=== PATIENT | male | born 1985 | race Caucasian/White ===

== ENCOUNTER 2022-02-24 13:22 | Outpatient (REF) | payer OTHER, SELFPAY ==
[2022-02-24 13:48] LABS: MANUAL DIFF FLAG NO
[2022-02-24 13:54] LABS: Basophils Percent Auto 0.2 % (0-2); Eosinophils Absolute Auto 0.1 X10*3/uL (0.0-0.4); Eosinophils Percent Auto 1.4 % (0-4); Hematocrit 44.2 % (42.0-52.0); Hemoglobin 15.2 g/dl (14.0-18.0); Imm Gran Abs Auto 0.02 X10*3/uL (0.00-0.03); Imm Gran Pct Auto 0.4 % (0.0-0.4); Lymphocytes Absolute Auto 1.3 X10*3/uL (1.2-4.9); Lymphocytes Percent Auto 23.2 % (20-40); Mean Corpuscular HGB Conc 34.4 g/dl (31.0-36.0); Mean Corpuscular Hemoglobin 29.7 pg (27.0-33.0); Mean Corpuscular Volume 86.3 fL (80.0-98.0); Mean Platelet Volume 9.8 fL (9.4-12.4); Monocytes Absolute Auto 0.4 X10*3/uL (0.1-1.2); Monocytes Percent Auto 7.9 % (2-11); Neutrophils Absolute Auto 3.8 x10*3/uL (2.0-8.3); Neutrophils Percent Auto 66.9 % (45-73); Platelet Count 166 X10*3/uL (160-400); Red Blood Count 5.12 X10*6/uL (4.60-5.80); Red Cell Distribution Width 12.6 % (11.0-16.0); White Blood Count 5.6 X10*3/uL (4.8-10.8)
[2022-02-24 14:08] LABS: Estimated Average Glucose 171 mg/dL; Hemoglobin A1c % 7.6 %
[2022-02-24 14:21] LABS: Alanine Aminotransferase 23 U/L (0-40); Albumin Level 4.5 g/dL (3.5-5.0); Alkaline Phosphatase 82 U/L (39-117); Anion Gap 11 (12-20); Aspartate Amino Transferase 13 U/L (5-37); Bilirubin Total 0.7 mg/dL (0.0-1.0); Blood Urea Nitrogen 16 mg/dL (9-16); Calcium 9.7 mg/dL (8.4-10.2); Carbon Dioxide 30 mmol/L (22-29); Chloride 101 mmol/L (96-108); Cholesterol 162 mg/dL; Estimated Glomerular Filt Rate > 60; Glucose Random 207 mg/dL (60-115); HDL Cholesterol 32 mg/dL; LDL Cholesterol Calculated 89 mg/dl; Potassium 4.5 mmol/L (3.3-5.1); Sodium 137 mmol/L (135-145); Triglycerides 206 mg/dL
[2022-02-24 14:41] LABS: TSH reflex Free T4 0.86 uIU/mL (0.32-4.0); Vitamin D 25-OH Total 22.8 ng/mL (>30)
[2022-02-24 16:04] LABS: Creatinine Urine 195.86 mg/dL; Microalbum/Creatinine Ratio Ur 11.7 ug/mg cr
[2022-02-24 16:23] LABS: Vitamin B12 407 pg/mL (200-900)
== END 2022-02-24 13:23 | disposition home or self-care (01) ==
LOC: HO.LAB 13:22
PROVIDERS: PCP Nurse Practitioner Family; Visit Provider Nurse Practitioner Family
DX: I10 Essential (primary) hypertension (principal); E11.9 Type 2 diabetes mellitus without complications; Z13.29 Encounter for screening for other suspected endocrine disorder; Z13.220 Encounter for screening for lipoid disorders
CPT/HCPCS: 36415; 80053; 80061; 82043; 82306; 82607; 82746; 83036; 84443; 85025

== ENCOUNTER 2024-04-05 15:14 | Outpatient (AMB) | payer OTHER, SELFPAY ==
--- NOTE | 2024-04-05 15:18 | MHC.PC.OV ---
Vital Signs 04/05/24 15:20 04/05/24 15:28 Height 5 ft 8 in Weight 187 lb 6 oz BMI 28.5 BP 150/98 H 160/90 H Blood Pressure Location Lt brachial Lt brachial Position Sitting Sitting Pulse 97 Pulse Source Pulse Oximeter Pulse Oximetry (%) 97 Oxygen Delivery Method Room Air Intake Visit Reasons: med refills/establish care Sandee patient Intake Note: Patient is here to follow up on med refill, DM. Family Intervention Specialist Required: No Home Improvement Advisor: Not Required per policy Accompanied by: Self / Same As Patient Allergies No Known Allergies Allergy (Verified 04/06/24 15:46) Medication List - Last Reconciled 04/06/24 by Juaquin Velez MD blood sugar diagnostic (FreeStyle Lite Strips) test daily blood-glucose meter (FreeStyle Lite Meter kit) test daily cholecalciferol (vitamin D3) 25 mcg PO DAILY empagliflozin (Jardiance) 25 mg PO DAILY enalapril maleate 10 mg PO DAILY lancets (FreeStyle Lancets) test daily metformin 500 mg PO BID Tobacco use date assessed: 04/05/24 Dental Screening Dental Screen Date: 04/05/24 Did you have a dental visit in the last 12 months?: No Did you have a dental problem in the last 6 months where you did not have access to dental care?: No Was dental information given to patient?: No HPI med refills/establish care Sandee patient HPI Details 39-year-old male presents to the office to discuss his medical condition. I will be assuming his care as his provider has left the practice. Patient has history of diabetes and hypertension. He has been out of medications for the past few months. Blood sugars have been elevated. Patient is a smoker and drinks alcohol every day. Able to function and do all activities of daily living. Not exercising or following any particular diet. [facility] Medical History (Updated 04/06/24 @ 15:50 by Juaquin Velez MD) Tobacco use disorder Hypertension Diabetes mellitus type 2 in nonobese Surgical History No pertinent past surgical history Family History Father Diabetes mellitus Hypertension Mother Stomach cancer Social History Housing: House Alcohol intake: current Alcohol intake frequency: a few times a month Patient Tobacco Use Status: Current everyday Tobacco user Tobacco use type: Cigarette Cigarettes Per Day: 4 e-Cigarette/Vaping Use: Never Used Second Hand Smoke Exposure: Yes service: No Current occupational status: other Cognitive needs: No Hearing needs: No Vision needs: Yes (Glasses) Questionnaire PHQ-9 Over the last 2 weeks, how often have you been bothered by any of the following problems? 1. Little interest or pleasure in doing things: not at all 2. Feeling down, depressed, or hopeless: not at all 3. Trouble falling or staying asleep, or sleeping too much: not at all 4. Feeling tired or having little energy: not at all 5. Poor appetite or overeating: not at all 6. Feeling bad about yourself - or that you are a failure or have let yourself or your family down: not at all 7. Trouble concentrating on things, such as reading the newspaper or watching television: not at all 8. Moving or speaking so slowly that other people could have noticed. Or the opposite - being so fidgety or restless that you have been moving around a lot more than usual: not at all 9. Thoughts that you would be better off or of hurting yourself in some way: not at all Total score: 0 Depression Screening Interpretation: Negative Depression Screening Done: Yes Source: Developed by Drs. Buster Marshall, Radha Carson, Herb Smith and colleagues, with an educational marquis from [employer]. Thrive Questionnaire Date Thrive assessed: 04/05/24 I am a: Patient What is your living situation today?: I have a steady place to live Within the past 12 months, did the food you bought not last and you didn't have the money to get more?: Never true Within the past 12 months, did you worry whether your food would run out before you got money to buy more?: Never true Do you have trouble paying for medicines?: No Do you have trouble getting transportation to medical appointments?: No Do you have trouble paying your heating and electricity bill?: No Do you have trouble taking care of your child, family member or friend?: No Do you have trouble with day-to-day activities such as bathing, preparing meals, shopping, managing finances, etc.?: No Are you currently unemployed and looking for a job?: No Are you interested in more education?: No Currently or been in a relationship where the following occur: no concerns reported THRIVE Score: 0 AUDIT C Alcohol Use Questionnaire (AUDIT-C) 1. How often do you have a drink containing alcohol?: Monthly or less Total Score: 1 SHAUNNA-7 AMB Questionnaire SHAUNNA-7 Date SHAUNNA - 7 assessed: 04/05/24 Feeling nervous, anxious, or on edge: 0 = Not at all Not being able to stop or control worryin = Not at all Worrying too much about different things: 0 = Not at all Trouble relaxin = Not at all Being so restless that it is hard to sit still: 0 = Not at all Becoming easily annoyed or irritable: 0 = Not at all Feeling afraid as if something awful might happen: 0 = Not at all Total SHAUNNA-7 score (0-4 normal; 5-9 mild; 10-14 moderate; 15-21 severe): 0 Source: Developed by Drs. Buster Marshall, Radha Carson, Herb Smith and colleagues, with an educational marquis from [employer]. Physical exam (Primary Care) Vital Signs: Last Vital Signs Pulse 97 04/05/24 15:20 BP 160/90 H 04/05/24 15:28 Pulse Ox 97 04/05/24 15:20 Oxygen Delivery Method Room Air 04/05/24 15:20 Care Plan Goal for BP management: Blood pressure is elevated. Medications have been restarted. BMI result Body Mass Index 28.5 Tobacco/Smoking Status: Tobacco use Status Tobacco use date assessed 04/05/24 04/05/24 15:31 Patient Tobacco Use Status Current everyday Tobacco 04/05/24 15:31 Tobacco use type Cigarette 04/05/24 15:27 e-Cigarette/Vaping Use Never Used 04/05/24 15:27 Are you ready to quit: Yes PHQ-9: PHQ-9 Score PHQ-9: Total score 0 04/05/24 15:41 Depression Screening Interpretation: Negative Thrive Assessment: Date of Thrive Assessment Date Thrive assessed 04/05/24 04/05/24 15:31 Currently or been in a relationship where the following occur: no concerns reported Const General: cooperative and healthy appearing Nutritional Appearance: well nourished Orientation/consciousness: patient oriented x3 Limitations: no limitations HENMT Head: Yes normal to inspection Eyes General: appearance normal, both eyes and all related structures Neck Neck: Yes normal visual inspection Chest Chest palpation & inspection: normal palpation of entire chest wall Resp Effort & Inspection: normal respiratory effort Neuro General: patient oriented x3 Results AMB Hemoglobin A1c AMB Hemoglobin A1c 7.3 % Last Edit by ALEJANDRO Brewer on 04/05/24 15:36 Results Reviewed Results Reviewed: Laboratory Last Values Hgb A1c (Clinic) 7.3 % (4.0-6.0) H 04/05/24 15:18 Assessment and Plan Assessment & Plan (1) Hypertension: Code(s): I10 - Essential (primary) hypertension Plan: Elevated blood pressure. MERCEDES inhibitors have been restarted. (2) Diabetes mellitus type 2 in nonobese: Code(s): E11.9 - Type 2 diabetes mellitus without complications Plan: A1c is elevated. Metformin and Jardiance has been added to the regimen. Patient has been encouraged compliance. I advised the patient to follow-up here before he leaves [place]. (3) Tobacco use disorder: Code(s): F17.200 - Nicotine dependence, unspecified, uncomplicated Plan: Patient was counseled to quit smoking. Orders: Orders AMB Hemoglobin A1c 04/05/24 E11.9 - Type 2 diabetes mellitus without complications Complete Blood Count no Diff Today E11.9 - Type 2 diabetes mellitus without complications, I10 - Essential (primary) hypertension Lipid Panel Today E11.9 - Type 2 diabetes mellitus without complications, I10 - Essential (primary) hypertension Liver Panel Today E11.9 - Type 2 diabetes mellitus without complications, I10 - Essential (primary) hypertension Thyroid Stimulating Hormone Today E11.9 - Type 2 diabetes mellitus without complications, I10 - Essential (primary) hypertension UA and rflx microscopic Today E11.9 - Type 2 diabetes mellitus without complications, I10 - Essential (primary) hypertension Basic Metabolic Panel Today E11.9 - Type 2 diabetes mellitus without complications, I10 - Essential (primary) hypertension Medications: New empagliflozin (Jardiance) 25 mg PO DAILY 90 tabs 1RF enalapril maleate 10 mg PO DAILY 90 tabs 1RF Refilled metformin 500 mg PO BID 180 tabs 1RF E11.9 - Type 2 diabetes mellitus without complications Coding Level of Care Code Est Pt Level 4 (63361) Complex EM visit Add On G2211 Diagnoses Hypertension I10 Diabetes mellitus type 2 in nonobese E11.9 Tobacco use disorder F17.200
[2024-04-05 15:20] VITALS: BP 150/98; PULSE 97; O2SAT 97; BMI 28.5
[2024-04-05 15:28] VITALS: BP 160/90
== END 2024-04-05 15:55 | disposition home or self-care (01) ==
PROVIDERS: PCP Nurse Practitioner Family; Visit Provider Internal Medicine
DX: E11.9 Type 2 diabetes mellitus without complications (principal)
CPT/HCPCS: 83036; 99214; G2211

== ENCOUNTER 2024-04-06 12:26 | Outpatient (REF) | payer OTHER, SELFPAY ==
[2024-04-06 13:40] LABS: Hematocrit 43.6 % (42.0-52.0); Hemoglobin 15.4 g/dl (14.0-18.0); Mean Corpuscular HGB Conc 35.3 g/dl (31.0-36.0); Mean Corpuscular Hemoglobin 30.9 pg (27.0-33.0); Mean Corpuscular Volume 87.6 fL (80.0-98.0); Platelet Count 158 X10*3/uL (160-400); Red Blood Count 4.98 X10*6/uL (4.60-5.80); Red Cell Distribution Width 13.2 % (11.0-16.0); White Blood Count 6.2 X10*3/uL (4.8-10.8)
[2024-04-06 14:19] LABS: Appearance Urine Clear; Color Urine Yellow; Glucose Urine UA >=1000 mg/dL (Negative); Leukocyte Esterase Urine Negative (Negative); Nitrite Urine Negative (Negative); PH 5.5 (5.0-9.0); Specific Gravity - Urine >= 1.030 (1.005-1.025); UMIC TRIGGER UA YES; Urine Blood Trace (Negative); Urine Ketones Negative (Negative); Urine Protein Negative (Neg-Trace)
[2024-04-06 14:21] LABS: Bacteria Urine None Seen (None Seen); Hyaline Casts Urine 0-2 /LPF (0-2); RBC Urine 0-2 /HPF (0-2); Squamous Epithelial Cell Urine 0-2 /HPF (0-2); WBC Urine 0-5 /HPF (0-5)
[2024-04-06 14:30] LABS: Alanine Aminotransferase 26 U/L (0-40); Albumin Level 4.4 g/dL (3.5-5.0); Alkaline Phosphatase 85 U/L (39-117); Anion Gap 12 (12-20); Aspartate Amino Transferase 19 U/L (5-37); Bilirubin Direct 0.2 mg/dL (0.0-0.5); Bilirubin Total 0.8 mg/dL (0.0-1.0); Blood Urea Nitrogen 14 mg/dL (9-16); Calcium 9.9 mg/dL (8.4-10.2); Carbon Dioxide 29 mmol/L (22-29); Chloride 102 mmol/L (96-108); Cholesterol 149 mg/dL (<200); Estimated Glomerular Filt Rate > 60; Glucose Random 162 mg/dL (60-115); HDL Cholesterol 40 mg/dL (>40); LDL Cholesterol Calculated 59 mg/dL (<100); Potassium 3.5 mmol/L (3.3-5.1); Sodium 139 mmol/L (135-145); Total Protein 7.3 g/dL (6.5-8.0); Triglycerides 253 mg/dL (<150)
== END 2024-04-06 12:27 | disposition home or self-care (01) ==
LOC: HO.LAB 12:26
PROVIDERS: PCP Internal Medicine; Visit Provider Internal Medicine
DX: I10 Essential (primary) hypertension (principal); E11.9 Type 2 diabetes mellitus without complications
CPT/HCPCS: 36415; 80048; 80061; 80076; 81001; 84443; 85027

== ENCOUNTER 2024-08-23 14:48 | Outpatient (AMB) | payer OTHER, SELFPAY ==
--- NOTE | 2024-08-23 14:59 | A.OFFPC_ITS ---
Vital Signs 08/23/24 15:00 Height 5 ft 8 in Weight 178 lb 4 oz BMI 27.1 BP 140/90 H Blood Pressure Location Lt brachial Position Sitting Pulse 77 Pulse Source Pulse Oximeter Pulse Oximetry (%) 96 Oxygen Delivery Method Room Air Intake Visit Reasons: Follow Up Intake Note: Patient is here to follow up on DM, HTN, HLD. Pt decline flu shot today. 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 Accompanied by: Self / Same As Patient Allergies No Known Allergies Allergy (Verified 08/24/24 04:47) Medication List - Last Reconciled 08/24/24 by Juaquin Velez MD blood sugar diagnostic (FreeStyle Lite Strips) test daily blood-glucose meter (FreeStyle Lite Meter kit) test daily cholecalciferol (vitamin D3) 25 mcg PO DAILY empagliflozin (Jardiance) 25 mg PO DAILY enalapril maleate 10 mg PO DAILY lancets (FreeStyle Lancets) test daily metformin 500 mg PO BID rosuvastatin 10 mg PO DAILY Tobacco use date assessed: 08/23/24 Dental Screening Dental Screen Date: 04/05/24 HPI Follow Up HPI Details 39-year-old male presents to the office to discuss his chronic medical conditions. Patient is compliant with medications and reporting no side effects. Has been following a restricted diet and has lost some weight. Able to function and do all activities of daily living. Patient is not checking his blood sugars regularly. Does not check his blood pressures at home. [facility] Medical History Hypercholesterolemia Tobacco use disorder Hypertension Diabetes mellitus type 2 in nonobese Surgical History No pertinent past surgical history Family History Father Diabetes mellitus Hypertension Mother Stomach cancer Social History Housing: House Alcohol intake: current Alcohol intake frequency: a few times a month Patient Tobacco Use Status: Current everyday Tobacco user Tobacco use type: Cigarette Cigarette Packs Per Day: 0.5 Cigarettes Per Day: 5 e-Cigarette/Vaping Use: Never Used Second Hand Smoke Exposure: Yes service: No Current occupational status: other Cognitive needs: No Hearing needs: No Vision needs: Yes (Glasses) Questionnaire Thrive Questionnaire Date Thrive assessed: 04/05/24 SHAUNNA-7 AMB Questionnaire SHAUNNA-7 Date SHAUNNA - 7 assessed: 04/05/24 Source: Developed by Drs. Buster Marshall, Radha Carson, Herb Smith and colleagues, with an educational marquis from [email or web address]. Physical exam (Primary Care) Vital Signs: Last Vital Signs Pulse 77 08/23/24 15:00 BP 140/90 H 08/23/24 15:00 Pulse Ox 96 08/23/24 15:00 Oxygen Delivery Method Room Air 08/23/24 15:00 BMI result Body Mass Index 27.1 Tobacco/Smoking Status: Tobacco use Status Tobacco use date assessed 08/23/24 08/23/24 15:08 Patient Tobacco Use Status Current everyday Tobacco 08/23/24 15:08 Tobacco use type Cigarette 08/23/24 15:08 e-Cigarette/Vaping Use Never Used 08/23/24 15:08 Thrive Assessment: Date of Thrive Assessment Date Thrive assessed 04/05/24 08/23/24 15:08 Const General: cooperative and healthy appearing Nutritional Appearance: well nourished Orientation/consciousness: patient oriented x3 Limitations: no limitations HENMT Head: Yes normal to inspection Eyes General: appearance normal, both eyes and all related structures Neck Neck: Yes normal visual inspection Chest Chest palpation & inspection: normal palpation of entire chest wall Resp Effort & Inspection: normal respiratory effort Neuro General: patient oriented x3 Results AMB Hemoglobin A1c AMB Hemoglobin A1c 7.0 % Last Edit by ALEJANDRO Brewer on 08/23/24 15:11 Results Reviewed Results Reviewed: Laboratory Last Values Hgb A1c (Clinic) 7.0 % (4.0-6.0) H 08/23/24 14:59 Coding Level of Care Code Est Pt Level 4 (68160) Complex EM visit Add On G2211 Diagnoses Hypercholesterolemia E78.00 Tobacco use disorder F17.200 Diabetes mellitus type 2 in nonobese E11.9 Hypertension I10 Assessment & Plan Assessment & Plan (1) Hypercholesterolemia: Code(s): E78.00 - Pure hypercholesterolemia, unspecified Category: Medical Plan: For a diabetic, patient's LDL is above range, rosuvastatin has been started. (2) Tobacco use disorder: Code(s): F17.200 - Nicotine dependence, unspecified, uncomplicated Category: Medical Plan: Patient was counseled to quit smoking. (3) Diabetes mellitus type 2 in nonobese: Code(s): E11.9 - Type 2 diabetes mellitus without complications Category: Medical Plan: A1c is at 7.0. Continue medications at same dosage. (4) Hypertension: Code(s): I10 - Essential (primary) hypertension Category: Medical Plan: Blood pressure is in range. Continue medications at same dosage. Orders: Orders AMB Hemoglobin A1c 08/23/24 E11.9 - Type 2 diabetes mellitus without complications Medications: New rosuvastatin 10 mg PO DAILY 90 tabs 1RF Refilled cholecalciferol (vitamin D3) 25 mcg PO DAILY 90 tabs 0RF R79.89 - Other specified abnormal findings of blood chemistry
[2024-08-23 15:00] VITALS: BP 140/90; PULSE 77; O2SAT 96; BMI 27.1
== END 2024-08-23 15:34 | disposition home or self-care (01) ==
PROVIDERS: PCP Internal Medicine; Visit Provider Internal Medicine
DX: E78.00 Pure hypercholesterolemia, unspecified (principal); F17.200 Nicotine dependence, unspecified, uncomplicated; E11.9 Type 2 diabetes mellitus without complications; I10 Essential (primary) hypertension

== ENCOUNTER → 2024-08-23 14:48 | Outpatient (BNVA) | payer OTHER, SELFPAY | PROVIDERS: PCP Internal Medicine; Visit Provider Internal Medicine | DX: E78.00 Pure hypercholesterolemia, unspecified (principal); E11.9 Type 2 diabetes mellitus without complications; I10 Essential (primary) hypertension; F17.200 Nicotine dependence, unspecified, uncomplicated; Z71.6 Tobacco abuse counseling | CPT/HCPCS: 83036; 99212 ==

== ENCOUNTER 2025-07-23 10:22 | Outpatient (AMB) | payer OTHER, SELFPAY ==
--- NOTE | 2025-07-23 10:25 | MHC.PC.OV ---
Vital Signs 07/23/25 10:36 Height 5 ft 8 in Weight 174 lb BMI 26.5 BP 130/80 Blood Pressure Location Lt brachial Position Sitting Pulse 83 Pulse Source Pulse Oximeter Temp 97.1 F Temp Source Temporal Artery Scan Pulse Oximetry (%) 97 Oxygen Delivery Method Room Air Intake Visit Reasons: fingers are lumb Intake Note: Patient is here to follow up on Numbness on right hand. Automotive Electrician Required: No Production Administrative Assistant: Not Required per policy Accompanied by: Self / Same As Patient Allergies No Known Allergies Allergy (Verified 07/23/25 10:35) Medication List - Last Reconciled 07/23/25 by Liz Olmstead MD blood sugar diagnostic (FreeStyle Lite Strips) test daily blood-glucose meter (FreeStyle Lite Meter kit) test daily cholecalciferol (vitamin D3) 25 mcg PO DAILY empagliflozin (Jardiance) 25 mg PO DAILY enalapril maleate 10 mg PO DAILY lancets (FreeStyle Lancets) test daily metformin 500 mg PO BID rosuvastatin 10 mg PO DAILY Tobacco use date assessed: 07/23/25 Dental Screening Dental Screen Date: 07/23/25 Did you have a dental visit in the last 12 months?: No Did you have a dental problem in the last 6 months where you did not have access to dental care?: No Was dental information given to patient?: No HPI HPI Comments History of Present Illness Details The patient is a 40-year-old male presenting with numbness in the left hand pinky and ring fingers. The numbness began approximately eight days ago after the patient fell asleep in his car with his elbow in a flexed position. There was no trauma or accident reported to the area, and the patient denies any other numbness or pain elsewhere. The patient has a history of diabetes mellitus and is currently taking empagliflozin, metformin, rosuvastatin, and enalapril. He works at a restaurant, which involves some physical activity, but no specific exercise routine was mentioned. [facility] Medical History Hypercholesterolemia Tobacco use disorder Hypertension Diabetes mellitus type 2 in nonobese Surgical History No pertinent past surgical history Family History Father Diabetes mellitus Hypertension Mother Stomach cancer Social History (Updated 07/23/25 @ 10:43 by ALEJANDRO Brewer) Housing: House Alcohol intake: current Alcohol intake frequency: 0-2 drinks per day Patient Tobacco Use Status: Current everyday Tobacco user Tobacco use type: Cigarette Cigarette Packs Per Day: 0.5 Cigarettes Per Day: 4 e-Cigarette/Vaping Use: Never Used Second Hand Smoke Exposure: Yes service: No Current occupational status: other Cognitive needs: No Hearing needs: No Vision needs: Yes (Glasses) Questionnaire PHQ-9 Over the last 2 weeks, how often have you been bothered by any of the following problems? 1. Little interest or pleasure in doing things: not at all 2. Feeling down, depressed, or hopeless: not at all 3. Trouble falling or staying asleep, or sleeping too much: not at all 4. Feeling tired or having little energy: not at all 5. Poor appetite or overeating: not at all 6. Feeling bad about yourself - or that you are a failure or have let yourself or your family down: not at all 7. Trouble concentrating on things, such as reading the newspaper or watching television: not at all 8. Moving or speaking so slowly that other people could have noticed. Or the opposite - being so fidgety or restless that you have been moving around a lot more than usual: not at all 9. Thoughts that you would be better off or of hurting yourself in some way: not at all Total score: 0 Source: Developed by Drs. Buster Marshall, Radha Carson, Herb Smith and colleagues, with an educational marquis from [employer]. Thrive Questionnaire Date Thrive assessed: 07/23/25 I am a: Patient SHAUNNA-7 AMB Questionnaire SHAUNNA-7 Date SHAUNNA - 7 assessed: 04/05/24 Source: Developed by Drs. Buster Marshall, Radha Carson, Herb Smith and colleagues, with an educational marquis from [employer]. Review of Systems Const Details: Not done Physical exam (Primary Care) Vital Signs: Last Vital Signs Temp 97.1 F 07/23/25 10:36 Pulse 83 07/23/25 10:36 BP 130/80 07/23/25 10:36 Pulse Ox 97 07/23/25 10:36 Oxygen Delivery Method Room Air 07/23/25 10:36 BMI result Body Mass Index 26.5 Tobacco/Smoking Status: Tobacco use Status Tobacco use date assessed 07/23/25 07/23/25 10:45 Patient Tobacco Use Status Current everyday Tobacco 07/23/25 10:43 Tobacco use type Cigarette 07/23/25 10:43 e-Cigarette/Vaping Use Never Used 07/23/25 10:43 PHQ-9: PHQ-9 Score PHQ-9: Total score 0 07/23/25 10:45 Thrive Assessment: Date of Thrive Assessment Date Thrive assessed 07/23/25 07/23/25 10:26 Const Other: Pertinent findings are in BOLD GENERAL APPEARANCE NAD, activity normal for age, well developed/ well nourished, no cyanosis, pallor, or diaphoresis. EYES lids/conjunctiva normal. EARS/NOSE/THROAT Mucous membranes moist, nares normal, lips/teeth normal uvula midline without oral pharyngeal erythema, exudate or swelling TMs normal bilaterally. No lymphangitis/lymphedema. HEAD/NECK normocephalic atraumatic, no facial trauma, neck is supple. RESPIRATORY respiratory effort normal, speaks in full sentences, no tripod position, no accessory muscle use. Lungs clear to auscultation without rhonchi, wheezes, rales CARDIAC Regular rate and rhythm, no edema. ABDOMINAL Soft, ND/NT. No evidence of fluid wave. No pulsatile masses on exam, rebound tenderness, Edwards sign or pain over Mcburney's point. MUSCLES/EXTREMITIES No abnormal range of motion, no swelling. SKIN Warm, pink and dry. No rashes, dermatoses, petechiae or lesions. NEUROLOGICAL Speech is clear and appropriate. Normal level of consciousness. Gait and coordination are normal. 5/5 strength in all extremities. Numbness in the pinky and ring fingers of his right hand. PSYCH Normal mood and affect. Judgement/competence is appropriate Results AMB Hemoglobin A1c AMB Hemoglobin A1c 6.8 % Last Edit by ALEJANDRO Brewer on 07/23/25 10:48 Results Reviewed Results Reviewed: Laboratory Last Values Hgb A1c (Clinic) 6.8 % (4.0-6.0) H 07/23/25 10:37 Coding Level of Care Code Est Pt Level 3 (63643) Diagnoses Ulnar nerve compression G56.20 Time Spent (min) 20 Assessment & Plan Assessment & Plan (1) Ulnar nerve compression: Code(s): G56.20 - Lesion of ulnar nerve, unspecified upper limb Category: Medical Plan: Advised on lifestyle modifications incl less flexion of the left elbow. Elbow splint: Patient will get it OTC. Magnesium Daily to help with nerve healing. Iburpofen PRN. Patient will see Dr. Patel in 07/2025 and will let him know in case symptoms do not improve. Plan During the visit, I discussed with the patient the likely diagnosis of ulnar nerve entrapment due to prolonged elbow flexion while sleeping in the car. I explained the importance of avoiding pressure on the elbow and recommended a splint to aid in healing. We also discussed the use of magnesium and ibuprofen to manage inflammation and promote nerve healing. The patient was advised to follow up with his primary care physician in July for further evaluation and management. Orders: Orders AMB Hemoglobin A1c Today Z13.9 - Encounter for screening, unspecified
[2025-07-23 10:36] VITALS: BP 130/80; PULSE 83; TEMP 36.2; O2SAT 97; BMI 26.5
== END 2025-07-23 10:57 | disposition home or self-care (01) ==
LOC: HO.HMCH 10:23
PROVIDERS: PCP Internal Medicine; Visit Provider Internal Medicine
DX: Z13.9 Encounter for screening, unspecified (principal); G56.20 Lesion of ulnar nerve, unspecified upper limb

== ENCOUNTER → 2025-07-23 10:22 | Outpatient (BNVA) | payer OTHER, SELFPAY | PROVIDERS: PCP Internal Medicine; Visit Provider Internal Medicine | DX: G56.21 Lesion of ulnar nerve, right upper limb (principal); E11.9 Type 2 diabetes mellitus without complications | CPT/HCPCS: 83036; 99212 ==